=== PATIENT | female | born 1975 ===

== ENCOUNTER 2021-10-14 09:04 | Outpatient (CLI) | payer OTHER | END 2021-10-14 11:04 | disposition home or self-care (01) | LOC: SONOGRAMA 09:04 | PROVIDERS: ATTEND Pathology Anatomic Pathology & Clinical Pathology | DX: E04.1 Nontoxic single thyroid nodule (principal) ==

== ENCOUNTER 2025-09-24 11:00 | Inpatient (IN) | payer OTHER ==
[~2025-09-24] VITALS: Ht 175.3 cm; Wt 66.7 kg
[2025-09-24] MEDS ORDERED: SYNTHROID112 MCG (14:24)
[2025-09-30] MEDS ORDERED: CEFTRIAXONE SODIUM 2,000 MG VIAL IV ONE (08:15)
[2025-09-30] MEDS ORDERED: METRONIDAZOLE/SODIUM CHLORIDE 500 MG/100 ML PIGGYBACK IV ONE (08:15)
[2025-09-30] MEDS ORDERED: LIDOCAINE HCL 1%/EPINEPHRINE 20ML VIAL IJ ONE (08:15)
[2025-09-30] MEDS ORDERED: BUPIVACAINE HCL 30 ML VIAL IJ ONE (08:15)
[2025-09-30] MEDS ORDERED: DEXTROSE 50 % IN WATER 0.5 G/ML DISP.SYRIN IV PRN (09:15)
[2025-09-30] MEDS ORDERED: RINGERS SOLUTION,LACTATED 1,000 ML IV SCH (09:15)
[2025-09-30] MEDS ORDERED: ONDANSETRON HCL 2 MG/ML VIAL IV PRN (09:15)
[2025-09-30] MEDS ORDERED: OxyCODONE HCL 5 MG TABLET (ROXICODONE) PO PRN (09:15)
[2025-09-30] MEDS ORDERED: MORPHINE SULFATE 4 MG/ML VIAL IV PRN (09:15)
[2025-09-30 12:52] LABS: BASO % 0.3 % (0.1-1.2); EOS # 0.00 (0.04-0.54); EOS % 0.0 % (0.7-7.0); LYMPH # 0.58 (1.18-3.74); LYMPH % 4.4 % (19.3-53.1); MEAN PLATELET VOLUME 10.80 fl (9.4-12.4); MONO # 0.65 (0.24-0.82); MONO % 4.9 % (4.7-12.5); NEUT # 11.90 (1.56-6.13); NEUT % 90.1 % (34.0-71.1); RED CELL DISTRIBUTION WIDTH 13.1 % (11.6-14.4)
[2025-09-30 12:55] VITALS: BP 108/74; O2SAT 100
[2025-09-30 13:22] LABS: BUN CREA RATIO 16.0 (7.0-25.0); CREATININE SERUM 0.74 mg/dL (0.55-1.02); GFR 83.41; GLUCOSE FASTING 93.0 mg/dL (65-100); OSMOLALITY SERUM 277.0 MOSM/KG (275-295)
[2025-09-30] MEDS ORDERED: ACETAMINOPHEN 500 MG GEL..CAP PO SCH (14:00)
[2025-09-30 16:00] VITALS: BP 92/54; O2SAT 97
[2025-09-30] MEDS ORDERED: LEVALBUTEROL HCL 0.63 MG/3 ML SOLUTION IH SCH (17:00)
[2025-09-30] MEDS ORDERED: GABAPENTIN 300 MG CAPSULE PO SCH (17:00)
[2025-09-30] MEDS ORDERED: FAMOTIDINE/PF 20 MG/2 ML VIAL IV PUSH SCH (21:00)
[2025-10-01 00:30] VITALS: BP 108/63; O2SAT 100
[2025-10-01] MEDS ORDERED: PATIENTS OWN MEDICATION (MEDICAMENTO EN PISO) PO SCH (06:00)
[2025-10-01 06:13] LABS: BASO % 0.4 % (0.1-1.2); EOS # 0.04 (0.04-0.54); EOS % 0.6 % (0.7-7.0); LYMPH # 1.83 (1.18-3.74); LYMPH % 26.3 % (19.3-53.1); MEAN PLATELET VOLUME 10.40 fl (9.4-12.4); MONO # 0.93 (0.24-0.82); NEUT # 4.12 (1.56-6.13); NEUT % 59.1 % (34.0-71.1); RED CELL DISTRIBUTION WIDTH 13.0 % (11.6-14.4)
[2025-10-01 06:37] LABS: BUN CREA RATIO 7.0 (7.0-25.0); CREATININE SERUM 0.7 mg/dL (0.55-1.02); GFR 88.94; GLUCOSE FASTING 81.0 mg/dL (65-100); OSMOLALITY SERUM 278.0 MOSM/KG (275-295)
[2025-10-01 06:51] LABS: MONO % 13.3 % (4.7-12.5)
[2025-10-01 08:41] VITALS: BP 102/69; O2SAT 98
[2025-10-01] MEDS ORDERED: SIMETHICONE 125 MG CAPSULE PO SCH (13:00)
[2025-10-01 16:32] VITALS: BP 101/65; O2SAT 99
[2025-10-01] MEDS ORDERED: ENOXAPARIN SODIUM 40 MG/0.4 ML SYRINGE SUBCUTANEO SCH (17:00)
[2025-10-02 01:08] VITALS: BP 100/67; O2SAT 98
[2025-10-02 07:30] VITALS: BP 103/70; O2SAT 99
[2025-10-02 08:04] LABS: BASO % 0.7 % (0.1-1.2); EOS # 0.04 (0.04-0.54); EOS % 0.7 % (0.7-7.0); LYMPH # 1.10 (1.18-3.74); LYMPH % 19.4 % (19.3-53.1); MEAN PLATELET VOLUME 10.80 fl (9.4-12.4); MONO # 0.63 (0.24-0.82); MONO % 11.1 % (4.7-12.5); NEUT # 3.85 (1.56-6.13); NEUT % 67.7 % (34.0-71.1); RED CELL DISTRIBUTION WIDTH 13.2 % (11.6-14.4)
[2025-10-02 08:49] LABS: BUN CREA RATIO 7.0 (7.0-25.0); CREATININE SERUM 0.58 mg/dL (0.55-1.02); GFR 110.49; GLUCOSE FASTING 89.0 mg/dL (65-100); OSMOLALITY SERUM 279.0 MOSM/KG (275-295)
[2025-10-02] MEDS ORDERED: ENOXAPARIN SODIUM 40 MG/0.4 ML SYRINGE SUBCUTANEO SCH (09:00)
[2025-10-02] MEDS ORDERED: PAIN RELIEVER500 M2 PO (10:24)
[2025-10-02] MEDS ORDERED: GABAPENTIN300 MG PO (10:24)
== END 2025-10-02 13:22 | disposition home or self-care (01) | DRG 334 ==
LOC: O/R 09-30 07:00 → SURG 09-30 07:00 → SURH 09-30 11:00 → SURG 09-30 13:10 → SURH 09-30 18:00 → SURG 10-02 13:22
PROVIDERS: Internal Medicine Geriatric Medicine; ADMIT Surgery; ATTEND Surgery
PROC: 0DJD8ZZ Inspection of Lower Intestinal Tract, Via Natural or Artificial Opening Endoscopic (ICD-10-PCS; 2025-09-30)
PROC: 3E0F7GC Introduction of Other Therapeutic Substance into Respiratory Tract, Via Natural or Artificial Opening (ICD-10-PCS; 2025-09-30)
PROC: 0DTP4ZZ Resection of Rectum, Percutaneous Endoscopic Approach (ICD-10-PCS; principal; 2025-09-30 18:00)
DX: K57.32 Diverticulitis of large intestine without perforation or abscess without bleeding (principal); J45.20 Mild intermittent asthma, uncomplicated; E03.9 Hypothyroidism, unspecified

== ENCOUNTER → 2025-10-05 | Emergency (ER) | payer OTHER ==
[~2025-10-05] VITALS: Ht 175.3 cm; Wt 66.7 kg
[~2025-10-05] MED LIST: 0.9 % SODIUM CHLORIDE 1,000 ML IV STA; FAMOTIDINE/PF 20 MG/2 ML VIAL IV STA; GABAPENTIN300 MG PO; ONDANSETRON HCL 2 MG/ML VIAL IV STA; PAIN RELIEVER500 M2 PO; SYNTHROID112 MCG
== END | disposition left against medical advice (07) ==
LOC: ER 12:12
DX: R42 Dizziness and giddiness (principal); R06.00 Dyspnea, unspecified; D64.9 Anemia, unspecified; R68.89 Other general symptoms and signs; J45.909 Unspecified asthma, uncomplicated; K57.92 Diverticulitis of intestine, part unspecified, without perforation or abscess without bleeding; R53.1 Weakness; E03.8 Other specified hypothyroidism